=== PATIENT | male | born 1970 | race Two or more races ===

== ENCOUNTER 2016-09-13 21:37 | Emergency (ER) | payer MEDICAID ==
[~2016-09-13] VITALS: Ht 177.8 cm; Wt 78.0 kg
[2016-09-13 21:49] VITALS: BP 144/95
== END 2016-09-13 23:17 | disposition home or self-care (01) ==
LOC: ER 21:39
DX: S62.307A Unspecified fracture of fifth metacarpal bone, left hand, initial encounter for closed fracture (principal); F17.210 Nicotine dependence, cigarettes, uncomplicated; F12.10 Cannabis abuse, uncomplicated; W22.8XXA Striking against or struck by other objects, initial encounter; Y93.89 Activity, other specified; Y99.8 Other external cause status; Y92.89 Other specified places as the place of occurrence of the external cause
CPT/HCPCS: 73110; 73130